=== PATIENT | male | born 1945 | race Caucasian/White ===

== ENCOUNTER → 2021-07-16 08:46 | Outpatient (BNVA) | payer MEDICARE, SELFPAY | PROVIDERS: PCP Internal Medicine; Visit Provider Surgery | DX: K40.90 Unilateral inguinal hernia, without obstruction or gangrene, not specified as recurrent (principal) | CPT/HCPCS: 99202 ==

== ENCOUNTER 2021-09-16 08:25 | Day surgery (SDC) | payer MEDICARE, SELFPAY ==
[2021-09-11 09:36] VITALS: BMI 28.8
[2021-09-16] VITALS (9 sets, daily range): BP systolic 141–175; BP diastolic 74–90; PULSE 52–66; RESP 16–20; TEMP 36.1–36.5; O2SAT 93–97
--- NOTE | 2021-09-16 09:20 | ECG_ITS ---
Test Reason : preop Blood Pressure : / mmHG Vent. Rate : 051 BPM Atrial Rate : 051 BPM P-R Int : 166 ms QRS Dur : 144 ms QT Int : 498 ms P-R-T Axes : 008 -15 160 degrees QTc Int : 458 ms Sinus bradycardia with Premature atrial complexes Left bundle branch block Abnormal ECG No previous ECGs available Referred By: Annette Curry Electronically Signed By:SLUEMA AHUJA MD
[2021-09-16] MEDS: Lactated Ringers 1,000 ML 50 ML IVCONT (09:26)
--- NOTE | 2021-09-16 09:42 | MHC.SHP ---
Pre-Procedural Eval Section A Date of Service: 09/16/21 Section B Chief Complaint: Right Inguinal Hernia Details of Present Illness: Has had a reducible right groin mass Relevant Social History: None Present Medications: see Short Stay Collaborative assessment Medical History: Significant History ( hyperlipidemia, hypertension) History of Previous Operations: No relevant previous surgery Allergies: Allergies Allergy/AdvReac Type Severity Reaction Status Date / Time Penicillins AdvReac Intermediate UPSET Verified 07/16/21 08:55 STOMACH Review of Systems Sugical H&P ROS: Negative: Constitution, Cardiovascular, Respiratory, Neurological, Psychiatric, Hem-Onc, Allergic/Immunologic, Gastrointestinal, Genitourinary, Musculoskeletal, Integumentary, Endocrine and Eyes/Ears/Nose/Throat Exam Surgical H&P Exam: Normal: HEENT, Normal: Heart, Normal: Lungs, Normal: Extremities, Normal: Skin and Normal: Neurological and Significant Findings: Abdomen ( right inguinal hernia, reducible) Plan I have reviewed the history and physical and performed a pertinent physical examination on my patient. No changes have occurred unless specified.
--- NOTE | 2021-09-16 09:49 | HO.ANESPROP2 ---
[facility] Active Problems Active Problems: All Active Problems (Updated 09/16/21 @ 08:48 by Mayra Reyes RN) Right inguinal hernia (Acute) Hyperlipidemia (Acute) Hypertension (Acute) cardiomyopathy coronary artery disease left BBB Past Medical History Medical History GERD (gastroesophageal reflux disease) H/O echocardiogram Heart failure Hyperlipidemia Hypertension Left bundle branch block (LBBB) Nonischemic cardiomyopathy Right inguinal hernia Surgical History Surgical History History of left inguinal hernia repair History of tonsillectomy History of Problems with Anesthesia: No Social History Social History Alcohol intake: current Alcohol intake frequency: holidays/special occasions only Patient Tobacco Use Status: Former Tobacco user Advance Directives: No Advance Directives Information Provided: Yes (brochure mailed) Advance Directives on File: No Meds Allergies Allergy/AdvReac Type Severity Reaction Status Date / Time Penicillins AdvReac Intermediate UPSET Verified 07/16/21 08:55 STOMACH Home Medications Medication Instructions Recorded Confirmed Last Taken Type losartan 100 mg tablet 100 mg PO DAILY 07/16/21 09/11/21 Unknown History metoprolol succinate 100 mg 100 mg PO DAILY 07/16/21 09/11/21 09/16/21 History tablet,extended release 24 hr rosuvastatin 10 mg tablet 10 mg PO BEDTIME 07/16/21 09/11/21 Unknown History Exam Exam Date and Time: September 16, 2021 0949 Height,Weight and Vital Signs: Height 5 ft 11 in Weight 93.553 kg Last Vital Signs Temp 97.7 F 09/16/21 08:55 Pulse 52 09/16/21 08:55 Resp 16 09/16/21 08:55 BP 151/85 H 09/16/21 08:55 Pulse Ox 97 09/16/21 08:55 Airway TM Dist: >3cm Neck ROM: Full Loose/Missing/Broken Teeth: No Heart: RRR Lungs: CTA Assessment and Plan Assessment Anesthesia Assessment: Chart Reviewed Final Anesthetic Review History of Problems with Anesthesia: No ASA Class: III Final Preanesthetic Review: Meds/Allgs Chart Reviewed, Consent Obtained/Reviewed and Anes Risks/Benef Reviewed Patient Risk: Intermediate Procedure Risk: Low Anesthetic Plan Anesthetic Plan: GA Disposition: Standard PACU
--- NOTE | 2021-09-16 11:03 | W.PM.OPN ---
Operative Note Operative Note Date of Service: 09/16/21 Narrative: Preop diagnosis: Right inguinal hernia Postop diagnosis: Right inguinal hernia, direct Procedure: Repair of right inguinal hernia with mesh Surgeon: Arthur Martinez MD executive staff assistant: LUZ MARIA Vaughn Patient is a 75-year-old male with a reducible mass on the right groin consistent with a right inguinal hernia. He wanted to proceed with repair. He understood technique of repair with mesh. His aware of the risks, benefits, and alternatives. He was brought to the operating room and placed supine on the table under general anesthesia via laryngeal mask airway. The right groin was prepped and draped in the usual sterile fashion. A surgical time-out was done. The patient received cefazolin 2 g IV preoperatively I infiltrated the planned line of incision with lidocaine 1%. I made a short incision using blade 15 along an imaginary line from the anterior superior iliac spine to the pubic ramus. This was deepened through this the subcutaneous layer until I would reached he should be aponeurosis. I bluntly dissected the external oblique aponeurosis to define the external ring. I made and incision on the external oblique aponeurosis along its fibers and connected this with the external ring to open the inguinal canal. Hemostats were applied to the edges of the divided aponeurosis. I bluntly dissected the underside of the aponeurosis to create a pocket for the mesh. I bluntly dissected the spermatic cord its contents using my index finger until was able to pass a Mable drain around this. The cord structures especially the deferens was protected during the rest of the procedure. This Mable drain was used for retraction. There was note of a large sac medial to the cord. We dissected this carefully off of the rest of the cord contents until this was completely . This was actually from the floor of the canal consistent with a direct hernia. I defined the base of the sac and reduce this completely through the defect. I reinforced this defect on the floor of the canal with a large-sized Prolene plug. The plug was secured with Prolene 2 sutures to shelving edge of the inguinal and laterally, the internal oblique superiorly and medially. using the inner leaves of the plug. The floor of the canal was then reinforced as well with a keyhole mesh. The tails of the mesh were passed around the cord at the level of the internal ring and secured together with Prolene 2 sutures. I flattened the mesh. I secured this with Prolene to suture to shelving edge of the inguinal and laterally and the oblique superiorly and medially as well as the pubic ramus inferomedially. I copiously irrigated. The external oblique aponeurosis were then post with Dexon 2-0 sutures to recreate the external ring. The subcutaneous layer was reapposed with Dexon 3-0 interrupted sutures. Skin closure was achieved with Dexon 4-0 subcuticular running stitch. The incision was infiltrated with Marcaine 0.5% for postop analgesia. Dressings were applied. The procedure was then completed The patient tolerated procedure well. There were no complications noted. Initial and final counts of sponges and instruments were correct. Estimated blood loss was about 15 cc . The patient was extubated without difficulty and transferred to the recovery room with stable vital signs.
[2021-09-16] MEDS: oxyCODONE HCl Immed Release 5 MG TABLET PO (11:43)
== END 2021-09-16 13:07 | disposition home or self-care (01) ==
PROVIDERS: PCP Internal Medicine; Visit Provider Surgery
PROC: (CPT 49505; principal; 2021-09-16 10:40)
DX: K40.90 Unilateral inguinal hernia, without obstruction or gangrene, not specified as recurrent (principal); I10 Essential (primary) hypertension; E78.5 Hyperlipidemia, unspecified; Z79.899 Other long term (current) drug therapy; Z88.0 Allergy status to penicillin; Z87.891 Personal history of nicotine dependence
CPT/HCPCS: 49505; 93005; C1781; J0690; J3010

== ENCOUNTER → 2021-09-29 13:25 | Outpatient (BNVA) | payer MEDICARE, SELFPAY | PROVIDERS: PCP Internal Medicine; Visit Provider Surgery | DX: K40.90 Unilateral inguinal hernia, without obstruction or gangrene, not specified as recurrent (principal); K21.9 Gastro-esophageal reflux disease without esophagitis; I50.9 Heart failure, unspecified; I11.0 Hypertensive heart disease with heart failure; I42.8 Other cardiomyopathies; I44.7 Left bundle-branch block, unspecified; Z87.891 Personal history of nicotine dependence; Z88.0 Allergy status to penicillin | CPT/HCPCS: 99212 ==

== ENCOUNTER → 2021-10-23 08:56 | Outpatient (BNVA) | payer MEDICARE, SELFPAY | PROVIDERS: PCP Internal Medicine; Visit Provider Surgery | DX: Z48.815 Encounter for surgical aftercare following surgery on the digestive system (principal); Z87.19 Personal history of other diseases of the digestive system | CPT/HCPCS: 99212 ==